=== PATIENT | male | born 1940 | race Caucasian/White ===

== ENCOUNTER 2021-02-03 12:04 | Emergency (ER) | payer OTHER ==
[~2021-02-03] VITALS: Ht 170.2 cm; Wt 50.0 kg
[~2021-02-03 12:04] MED LIST: ALBU6.7H8 INH; AMLO-150 PO; ASPI81TA45 PO; DICL100G19 TD; DOXA2TAB9 PO; FERR-51 PO; FINA5TAB4 PO; FLUT15.812 NAS; HYDR1TAB53 PO; HYDR25SU21 RC; HYDR25TA6 PO; LISI40TA9 PO; OXYC5TAB98 PO; SIMV10TA18 PO; TRIA15CR61 TP
--- NOTE | 2021-02-03 12:10 | NUR ---
ASSIST RN: PT RUBY MCDERMOTT FROM HOME. PER EMS, PT WAS ON THE PHONE WITH HIS PCP KAREN MACDONALD. DR. MACDONALD THEN CALLED 911 FOR A WELFARE CHECK. PT IS VERY [place]. DID NOT HAVE A SPECIFIC COMPLAINT TODAY, C/O INTERMITTENT PAIN ALL OVER, "I'M DYING", "CANCER ALL OVER". PT DOES HAVE A FACIAL ABSCESS COVERED WITH BAND-AID TO R SIDE OF HIS FACE. PT STATES, "MY DOCTOR WON'T GIVE ME ANY TREATMENT!" VSS PER EMS, BS 119. PT A&OX4 BUT POOR HISTORIAN. TAKING AMLODIPINE, LISINOPRIL, AND HYDROMORPHONE PER EMS. EMS STATES PT WAS HERE 1 WEEK AGO. REPORTED TO RAJESH LEMUS RN.
[2021-02-03] MEDS ORDERED: ONDANSETRON 2MG/ML, 2ML IVPush ONE (12:30)
[2021-02-03] MEDS ORDERED: HYDROmorphone 1 MG/ML, 1ML INJ IV ONE (12:30)
[2021-02-03] MEDS ORDERED: SODIUM CHLORIDE FLUSH 10ML SYR IVF ONE (12:30)
[2021-02-03] MEDS ORDERED: HYDROmorphone 1 MG/ML, 1ML INJ ONE (12:34)
[2021-02-03] MEDS ORDERED: ONDANSETRON 2MG/ML, 2ML ONE (12:34)
--- NOTE | 2021-02-03 12:57 | NUR ---
PT RESTING, IV ESTABLISHED. MEDICATED FOR PAIN.
[2021-02-03 13:08] LABS: BASOPHILS % (AUTO) 1 % (0-1); EOSINOPHILS % (AUTO) 0 % (1-7); LYMPHOCYTES % (AUTO) 21 % (22-44); MEAN CORPUSCULAR HEMOGLOBIN 23.5 pg (27.5-34.5); MEAN CORPUSCULAR HGB CONC 31.8 g/dL (33.2-36.2); MEAN PLATELET VOLUME 7.4 fL (7.4-10.4); MONOCYTES % (AUTO) 10 % (2-9); NEUTROPHILS % (AUTO) 67 % (42-75); PLATELET COUNT 302 x10^3/uL (130-400); RED BLOOD COUNT 3.54 x10^6/uL (4.38-5.82); RED CELL DISTRIBUTION WIDTH 17.4 % (9.4-14.8)
[2021-02-03 13:09] LABS: ALANINE AMINOTRANSFERASE 17 U/L (12-78); ALBUMIN 2.7 g/dL (3.4-5.0); ANION GAP 4 mmol/L (5-15); CALCIUM 8.4 mg/dL (8.5-10.1); CHLORIDE 102 mmol/L (98-107); CREATININE 0.76 mg/dL (0.7-1.3)
[2021-02-03 13:10] LABS: MD NO
[2021-02-03 13:11] LABS: ALKALINE PHOSPHATASE 69 U/L (45-117); BILIRUBIN,TOTAL 0.4 mg/dL (0.2-1.0); TOTAL PROTEIN 6.2 g/dL (6.4-8.2)
--- NOTE | 2021-02-03 15:12 | NUR ---
PT SEEN BY SW
[2021-02-03 15:46] VITALS: BP 99/57
--- NOTE | 2021-02-03 16:51 | NUR ---
ASSSITED PT GETTING DRESSED. IV REMOVED
--- NOTE | 2021-02-03 16:51 | NUR ---
Patient given discharge instructions and they have confirmed that they understand the instructions. DC with [employer]
== END 2021-02-03 16:54 | disposition home or self-care (01) ==
LOC: ED 16:46
DX: C34.90 Malignant neoplasm of unspecified part of unspecified bronchus or lung (principal); D63.0 Anemia in neoplastic disease; R51.9 Headache, unspecified; E78.5 Hyperlipidemia, unspecified
CPT/HCPCS: 36415; 80053; 85025; 96374; 96375; 99284; J1170; J2405